=== PATIENT | female | born 1980 | race Two or more races ===

== ENCOUNTER 2018-11-14 15:11 | Outpatient (CLI) | payer OTHER | END 2018-11-14 15:19 | disposition home or self-care (01) | LOC: LAB 15:11 → CERTIFICAD 15:11 → LAB 15:19 | DX: Z11.3 Encounter for screening for infections with a predominantly sexual mode of transmission (principal) ==

== ENCOUNTER 2019-02-06 07:53 | Outpatient (CLI) | payer OTHER | END 2019-02-06 07:56 | disposition home or self-care (01) | LOC: LAB 07:53 | DX: E28.8 Other ovarian dysfunction (principal) ==

== ENCOUNTER 2019-05-09 06:38 | Outpatient (CLI) | payer OTHER | END 2019-05-09 07:58 | disposition home or self-care (01) | LOC: LAB 06:38 | DX: N92.0 Excessive and frequent menstruation with regular cycle (principal) ==

== ENCOUNTER 2019-07-18 07:02 | Outpatient (CLI) | payer OTHER | END 2019-07-18 15:00 | disposition home or self-care (01) | LOC: LAB 07:02 | DX: K59.09 Other constipation (principal); Z00.00 Encounter for general adult medical examination without abnormal findings; G47.09 Other insomnia; Z13.6 Encounter for screening for cardiovascular disorders ==

== ENCOUNTER → 2019-09-04 07:15 | Outpatient (CLI) | payer OTHER | END | disposition home or self-care (01) | LOC: LAB 07:15 | DX: Z34.00 Encounter for supervision of normal first pregnancy, unspecified trimester (principal) ==

== ENCOUNTER → 2019-11-14 09:36 | Outpatient (CLI) | payer OTHER ==
[~2019-11-14 09:36] MED LIST: PRENATAL CAPLE1 EAC1
== END | disposition home or self-care (01) ==
LOC: LAB 09:36
DX: Z34.00 Encounter for supervision of normal first pregnancy, unspecified trimester (principal)

== ENCOUNTER 2019-11-15 15:44 | Emergency (ER) | payer OTHER ==
[~2019-11-15] VITALS: Ht 165.1 cm; Wt 73.9 kg
[2019-11-15] MEDS ORDERED: PRENATAL CAPLE1 EAC1 (15:49)
== END 2019-11-15 19:35 | disposition home or self-care (01) ==
LOC: ER 15:44
DX: O46.8X2 Other antepartum hemorrhage, second trimester (principal); Z34.02 Encounter for supervision of normal first pregnancy, second trimester

== ENCOUNTER → 2019-12-14 | Outpatient (CLI) | payer OTHER | END | disposition home or self-care (01) | LOC: PRENATAL 13:30 | DX: O35.3XX1 Maternal care for (suspected) damage to fetus from viral disease in mother, fetus 1 (principal); O09.512 Supervision of elderly primigravida, second trimester; O34.12 Maternal care for benign tumor of corpus uteri, second trimester; O28.1 Abnormal biochemical finding on antenatal screening of mother ==

== ENCOUNTER → 2020-02-21 07:05 | Outpatient (CLI) | payer OTHER | END | disposition home or self-care (01) | LOC: LAB 07:05 | DX: Z34.00 Encounter for supervision of normal first pregnancy, unspecified trimester (principal); Z11.4 Encounter for screening for human immunodeficiency virus [HIV] ==

== ENCOUNTER 2020-03-08 08:31 | Outpatient (CLI) | payer OTHER | END 2020-03-08 08:33 | disposition home or self-care (01) | LOC: LAB 08:31 | PROVIDERS: ATTEND Obstetrics & Gynecology | DX: N39.0 Urinary tract infection, site not specified (principal) ==

== ENCOUNTER 2020-03-31 15:43 | Inpatient (IN) | payer OTHER ==
[~2020-03-31] VITALS: Ht 167.6 cm; Wt 3.2 kg
[2020-04-18] MEDS ORDERED: PRENATABS FA T1 EACH PO (14:48)
[2020-04-24] MEDS ORDERED: PEPCID40 MG PO (15:10)
== END 2020-04-26 14:51 | disposition home or self-care (01) | DRG 788 ==
LOC: O/R 04-23 06:00 → OB/GYN 04-23 10:18 → SURG-SUITE 04-24 14:10 → OB/GYN 04-24 18:56
PROVIDERS: ADMIT Obstetrics & Gynecology; ATTEND Obstetrics & Gynecology
PROC: 4A1HXFZ Monitoring of Products of Conception, Cardiac Rhythm, External Approach (ICD-10-PCS; 2020-04-23)
PROC: 3E033VJ Introduction of Other Hormone into Peripheral Vein, Percutaneous Approach (ICD-10-PCS; 2020-04-23)
PROC: 10D00Z1 Extraction of Products of Conception, Low, Open Approach (ICD-10-PCS; principal; 2020-04-23 22:15)
DX: O32.1XX0 Maternal care for breech presentation, not applicable or unspecified (principal); O99.824 Streptococcus B carrier state complicating childbirth; Z3A.39 39 weeks gestation of pregnancy; Z37.0 Single live birth

== ENCOUNTER 2020-12-22 10:49 | Outpatient (CLI) | payer OTHER ==
[~2020-12-22 10:49] MED LIST changes: +PEPCID40 MG PO; +PRENATABS FA T1 EACH PO
== END 2020-12-22 10:51 | disposition home or self-care (01) ==
LOC: SONOGRAMA 10:49
PROVIDERS: ATTEND Pathology Anatomic Pathology & Clinical Pathology
DX: E04.1 Nontoxic single thyroid nodule (principal)

== ENCOUNTER → 2021-01-19 15:49 | Outpatient (CLI) | payer OTHER | END | disposition home or self-care (01) | LOC: PPH VACUNA 15:49 | DX: Z23 Encounter for immunization (principal) ==

== ENCOUNTER 2021-07-09 14:43 | Outpatient (CLI) | payer OTHER | END 2021-07-09 14:46 | disposition home or self-care (01) | LOC: PPH VACUNA 14:43 | PROVIDERS: ATTEND Emergency Medicine Pediatric Emergency Medicine | DX: Z23 Encounter for immunization (principal) ==

== ENCOUNTER 2021-07-30 07:42 | Outpatient (CLI) | payer OTHER | END 2021-07-30 14:11 | disposition home or self-care (01) | LOC: MAMO-SONO 07:42 | PROVIDERS: ATTEND Obstetrics & Gynecology | DX: N60.89 Other benign mammary dysplasias of unspecified breast (principal) ==

== ENCOUNTER 2021-09-07 14:07 | Outpatient (CLI) | payer OTHER | END 2021-09-07 14:27 | disposition home or self-care (01) | LOC: SONOGRAMA 14:07 | PROVIDERS: ATTEND Surgery | DX: D24.2 Benign neoplasm of left breast (principal); N60.11 Diffuse cystic mastopathy of right breast; N60.12 Diffuse cystic mastopathy of left breast ==

== ENCOUNTER 2022-02-05 07:37 | Outpatient (CLI) | payer OTHER | END 2022-02-05 07:53 | disposition home or self-care (01) | LOC: SONOGRAMA 07:37 | PROVIDERS: ATTEND Surgery | DX: N60.11 Diffuse cystic mastopathy of right breast (principal); N60.12 Diffuse cystic mastopathy of left breast ==

== ENCOUNTER 2022-07-23 07:46 | Outpatient (CLI) | payer OTHER | END 2022-07-23 10:34 | disposition home or self-care (01) | LOC: TOM 07:46 | PROVIDERS: ATTEND Surgery | DX: N60.11 Diffuse cystic mastopathy of right breast (principal); N60.12 Diffuse cystic mastopathy of left breast ==